=== PATIENT | male | born 1950 | race Caucasian/White ===

== ENCOUNTER → 2018-12-22 | Outpatient (CLI) | payer MEDICARE, OTHER ==
--- NOTE | 2019-01-21 23:42 | SLEEP ---
[address] [address] SLEEP STUDY REPORT Name: LEBRONELSIE Tidwell Room: [facility]#: [id number] Admission: 12/22/18 Attend Phys: Alicia Hernandez Discharge: Date of : 52 Report #: [id number] THIS REPORT FOR: //name// CC: Alicia Hernandez PA-C This study has been reviewed in its entirety by a board certified sleep specialist DATE OF SERVICE: 01/04/2019 HOME SLEEP STUDY REFERRING PHYSICIAN: Alicia Hernandez PA-C The patient is a 68-year-old who weighs 215 pounds with a BMI of 29.2. The patient's Tyndall score was 7. The patient underwent a home sleep study performed at [facility]. Total recording time was 471 minutes. During the night study, the patient had no central apneas, but 263 obstructive apneas. There were no mixed apneas. The patient also had 85 hypopneas. The patient's apnea hypopnea index was 44 per hour. Supine sleep was not recorded. Nocturnal oximetry study revealed an average oxygen saturation of 91% with a loss of 72%. 119 minutes were spent and oxygen saturation is less than 90%. Another 64 minutes with saturations of 85% and another 25 minutes with saturation of less than 80%. Mean heart rate was 65 beats per minute with a maximum of 104 beats per minute. IMPRESSION: 1. Severe sleep apnea-hypopnea syndrome at an AHI of 44 per hour. 2. Severe nocturnal hypoxia secondary to obstructive sleep apnea. RECOMMENDATIONS: 1. The patient would benefit from in-lab CPAP titration study. 2. Once the patient is optimally treated with CPAP, then follow up in 4-6 weeks to assess compliance with CPAP and to document clinical improvement. 3. Weight loss is advised. 4. Avoid [employer] depressants. 5. Cautioned regarding driving or operating heavy machinery until symptoms of sleep apnea resolve with the use of CPAP. <ELECTRONICALLY SIGNED> By: Shaka Reinoso MD 01/21/19 [id number] 2021Aman Law Reinoso MD /nt
== END ==
LOC: M.SLEEPLAB 10-23 14:00
DX: G47.33 Obstructive sleep apnea (adult) (pediatric) (principal)